=== PATIENT | female | born 1940 | race Caucasian/White ===

== ENCOUNTER 2020-07-31 11:58 | Inpatient (IN) ==
[2020-07-31 12:58] LABS: ABS Eosinophils 0.1 10^3/ul (0-0.6); ABS Monocytes 0.7 10^3/ul (0-0.8); ABS Neutrophils 3.3 10^3/ul (1.5-7.7); Eosinophil % 0.9 %; Hematocrit 23 % (35-47); Hemoglobin 7.7 g/dL (12.0-16.0); Lymphocyte % 32.5 %; Mean Corpuscular HGB Conc 33 g/dL (31-36); Mean Corpuscular Hemoglobin 29 pg (27-31); Mean Corpuscular Volume 88 fL (80-97); Mean Platelet Volume 5.8 fL (7.4-10.4); Platelet Count 392 10^3/uL (150-450); Red Blood Count 2.65 10^6 /uL (3.70-4.87); Red Cell Distribution Width 15 % (10-15); White Blood Count 6.1 10^3/uL (3.5-10.8)
[2020-07-31 13:10] LABS: INR 1.15 (0.82-1.09)
[2020-07-31 13:16] LABS: ALT 8 U/L (7-52); AST 13 U/L (13-39); Albumin/Globulin Ratio 0.6 (1-3); Alkaline Phosphatase 103 U/L (34-104); Anion Gap 8 mmol/L (2-11); BUN/Creatinine Ratio 24.4 (8-20); Blood Urea Nitrogen 38 mg/dL (6-24); C Reactive Protein 170.86 mg/L (<8.01); CO2 Carbon Dioxide 22 mmol/L (22-32); Chloride 106 mmol/L (101-111); EGFR African American 38.5 (>60); EGFR Non-African American 31.9 (>60); Glucose 104 mg/dL (70-100); Potassium 4.6 mmol/L (3.5-5.0); Sodium 136 mmol/L (135-145)
[2020-07-31 13:17] LABS: Troponin I 0.02 ng/mL (<0.03)
[2020-07-31] MEDS ORDERED: Piperacillin/Tazobac ADVAN 3.375 GM in NS 0.9% 100 ml BAG 100 ML IV ONE (13:19)
[2020-07-31] MEDS ORDERED: NS 0.9% 500 ml BAG 500 ML IV ONE (14:12)
[2020-07-31 15:03] LABS: % Iron Saturation 10 % (15-55); Iron 21 ug/dL (50-212); Total Iron Binding Capacity 220 mcg/dL (250-450); Transferrin 157 mg/dL (203-362); Unsaturated Iron Binding < 205 ug/dL
[2020-07-31 15:15] LABS: Folate 12.47 ng/mL (>3.99)
[2020-07-31 15:16] LABS: Ferritin 177.5 ng/mL (11-307)
[2020-07-31 15:17] LABS: Vitamin B12 460 pg/mL (180-914)
[2020-07-31] MEDS ORDERED: Vancomycin per Pharmacy 1 EA NOTE FOLLOW UP PRN (15:46)
[2020-07-31 19:14] LABS: Urine Appearance Cloudy; Urine Bilirubin Negative (Negative); Urine Blood 3+ (Negative); Urine Color Yellow; Urine Glucose Negative (Negative); Urine Ketones Negative (Negative); Urine Nitrite Negative (Negative); Urine Protein 2+(100 mg/dL) (Negative); Urine Specific Gravity 1.014 (1.010-1.030); Urine Urobilinogen Negative (Negative)
[2020-07-31 19:18] LABS: Urine Bacteria 1+ (Absent); Urine Red Blood Cell 3+(>10/hpf) (Absent); Urine Squamous Epithelial Cell Present (Absent); Urine White Blood Cell 3+(>20/hpf) (Absent)
[2020-07-31] MEDS ORDERED: Vancomycin 1,250 MG in NS 0.9% 250 ml 250 ML IVPB ONE (21:00)
[2020-07-31] MEDS: Cefepime 2 GM in Dextrose 2 GM/50 ML BAG IV SCH (23:31)
[2020-08-01 05:47] LABS: ABS Lymphocytes 1.6 10^3/ul (1.0-4.8); ABS Monocytes 0.6 10^3/ul (0-0.8); Eosinophil % 0.3 %; Hematocrit 21 % (35-47); Hemoglobin 6.8 g/dL (12.0-16.0); Mean Corpuscular HGB Conc 33 g/dL (31-36); Mean Corpuscular Hemoglobin 29 pg (27-31); Mean Corpuscular Volume 89 fL (80-97); Mean Platelet Volume 6.1 fL (7.4-10.4); Platelet Count 335 10^3/uL (150-450); Red Blood Count 2.35 10^6 /uL (3.70-4.87); Red Cell Distribution Width 14 % (10-15); White Blood Count 7.2 10^3/uL (3.5-10.8)
[2020-08-01 06:05] LABS: BUN/Creatinine Ratio 22.4 (8-20); Calcium 7.9 mg/dL (8.6-10.3); EGFR African American 41.3 (>60); EGFR Non-African American 34.1 (>60); Potassium 4.2 mmol/L (3.5-5.0)
[2020-08-01] MEDS ORDERED: NS 0.9% 1000 ml BAG 1,000 ML IV SCH (08:00)
[2020-08-01] MEDS: Cefepime 2 GM in Dextrose 2 GM/50 ML BAG IV SCH ×3 (10:13→22:59)
[2020-08-01] MEDS: Dakins Solution 0.125% (1/4 STRENGTH) 473 ML BTL TOPICAL SCH (10:17)
[2020-08-01] MEDS: Vancomycin 1000 MG in NS 0.9% 250 ML IVPB SCH (15:52)
[2020-08-02 06:01] LABS: ABS Eosinophils 0.1 10^3/ul (0-0.6); ABS Lymphocytes 1.8 10^3/ul (1.0-4.8); ABS Monocytes 0.7 10^3/ul (0-0.8); ABS Neutrophils 4.4 10^3/ul (1.5-7.7); Eosinophil % 1.2 %; Hematocrit 21 % (35-47); Lymphocyte % 26.2 %; Mean Corpuscular HGB Conc 33 g/dL (31-36); Mean Corpuscular Hemoglobin 29 pg (27-31); Mean Corpuscular Volume 88 fL (80-97); Mean Platelet Volume 6.2 fL (7.4-10.4); Platelet Count 303 10^3/uL (150-450); Red Blood Count 2.41 10^6 /uL (3.70-4.87); Red Cell Distribution Width 15 % (10-15)
[2020-08-02 06:19] LABS: BUN/Creatinine Ratio 20.7 (8-20); Calcium 7.7 mg/dL (8.6-10.3); EGFR African American 45.5 (>60); EGFR Non-African American 37.6 (>60)
[2020-08-02] MEDS: Dakins Solution 0.125% (1/4 STRENGTH) 473 ML BTL TOPICAL SCH (10:43)
[2020-08-02] MEDS: Cefepime 2 GM in Dextrose 2 GM/50 ML BAG IV SCH ×2 (11:54→23:03)
[2020-08-02] MEDS: Vancomycin 1000 MG in NS 0.9% 250 ML IVPB SCH (15:25)
[2020-08-03 06:54] LABS: ABS Eosinophils 0.2 10^3/ul (0-0.6); ABS Lymphocytes 1.7 10^3/ul (1.0-4.8); ABS Monocytes 0.6 10^3/ul (0-0.8); ABS Neutrophils 4.3 10^3/ul (1.5-7.7); Eosinophil % 2.5 %; Hematocrit 23 % (35-47); Hemoglobin 7.5 g/dL (12.0-16.0); Lymphocyte % 25.4 %; Mean Corpuscular HGB Conc 33 g/dL (31-36); Mean Corpuscular Hemoglobin 28 pg (27-31); Mean Corpuscular Volume 86 fL (80-97); Mean Platelet Volume 6.1 fL (7.4-10.4); Platelet Count 310 10^3/uL (150-450); Red Blood Count 2.65 10^6 /uL (3.70-4.87); Red Cell Distribution Width 16 % (10-15); White Blood Count 6.9 10^3/uL (3.5-10.8)
[2020-08-03] MEDS: Cefepime 2 GM in Dextrose 2 GM/50 ML BAG IV SCH ×2 (11:55→22:55)
[2020-08-03] MEDS: Dakins Solution 0.125% (1/4 STRENGTH) 473 ML BTL TOPICAL SCH (11:55)
[2020-08-03] MEDS ORDERED: Vancomycin Trough Check NOTE FOLLOW UP ONE (15:30)
[2020-08-03] MEDS: Vancomycin 1000 MG in NS 0.9% 250 ML IVPB SCH (17:09)
[2020-08-04 06:22] LABS: ABS Eosinophils 0.2 10^3/ul (0-0.6); ABS Lymphocytes 1.3 10^3/ul (1.0-4.8); ABS Monocytes 0.6 10^3/ul (0-0.8); ABS Neutrophils 4.2 10^3/ul (1.5-7.7); Hematocrit 24 % (35-47); Hemoglobin 7.9 g/dL (12.0-16.0); Lymphocyte % 21.1 %; Mean Corpuscular HGB Conc 34 g/dL (31-36); Mean Corpuscular Hemoglobin 29 pg (27-31); Mean Corpuscular Volume 86 fL (80-97); Mean Platelet Volume 6.1 fL (7.4-10.4); Platelet Count 326 10^3/uL (150-450); Red Blood Count 2.74 10^6 /uL (3.70-4.87); Red Cell Distribution Width 16 % (10-15); White Blood Count 6.4 10^3/uL (3.5-10.8)
[2020-08-04 06:41] LABS: BUN/Creatinine Ratio 25.6 (8-20); Calcium 7.8 mg/dL (8.6-10.3); EGFR African American 49.8 (>60); EGFR Non-African American 41.1 (>60); Potassium 4.2 mmol/L (3.5-5.0)
[2020-08-04 11:38] LABS: C Reactive Protein 150.16 mg/L (<8.01)
[2020-08-04] MEDS: Cefepime 2 GM in Dextrose 2 GM/50 ML BAG IV SCH ×2 (13:36→23:13)
[2020-08-04] MEDS: Dakins Solution 0.125% (1/4 STRENGTH) 473 ML BTL TOPICAL SCH (14:41)
[2020-08-05 07:07] LABS: Hematocrit 23 % (35-47); Hemoglobin 7.6 g/dL (12.0-16.0)
[2020-08-05] MEDS: Dakins Solution 0.125% (1/4 STRENGTH) 473 ML BTL TOPICAL SCH (10:39)
[2020-08-05] MEDS: Cefepime 2 GM in Dextrose 2 GM/50 ML BAG IV SCH ×2 (11:42→23:31)
[2020-08-06 07:05] LABS: ABS Eosinophils 0.3 10^3/ul (0-0.6); ABS Lymphocytes 1.6 10^3/ul (1.0-4.8); ABS Monocytes 0.7 10^3/ul (0-0.8); ABS Neutrophils 2.9 10^3/ul (1.5-7.7); Eosinophil % 4.6 %; Hematocrit 23 % (35-47); Hemoglobin 7.5 g/dL (12.0-16.0); Lymphocyte % 28.6 %; Mean Corpuscular HGB Conc 33 g/dL (31-36); Mean Corpuscular Hemoglobin 29 pg (27-31); Mean Corpuscular Volume 87 fL (80-97); Mean Platelet Volume 6.1 fL (7.4-10.4); Platelet Count 338 10^3/uL (150-450); Red Blood Count 2.61 10^6 /uL (3.70-4.87); Red Cell Distribution Width 15 % (10-15); White Blood Count 5.5 10^3/uL (3.5-10.8)
[2020-08-06 07:16] LABS: BUN/Creatinine Ratio 26.7 (8-20); Calcium 8.3 mg/dL (8.6-10.3); EGFR African American 54.3 (>60); EGFR Non-African American 44.8 (>60); Potassium 4.3 mmol/L (3.5-5.0)
[2020-08-06] MEDS: Cefepime 2 GM in Dextrose 2 GM/50 ML BAG IV SCH ×2 (12:06→23:00)
[2020-08-06] MEDS ORDERED: Vancomycin Trough Check NOTE FOLLOW UP ONE (15:30)
[2020-08-06 18:33] LABS: TSH Ultra Thyroid Stim Horm 3.46 mcIU/mL (0.34-5.60)
[2020-08-07 06:34] LABS: ABS Eosinophils 0.3 10^3/ul (0-0.6); ABS Lymphocytes 1.8 10^3/ul (1.0-4.8); ABS Monocytes 0.7 10^3/ul (0-0.8); ABS Neutrophils 3.1 10^3/ul (1.5-7.7); Eosinophil % 4.5 %; Hematocrit 23 % (35-47); Hemoglobin 7.6 g/dL (12.0-16.0); Lymphocyte % 30.4 %; Mean Corpuscular HGB Conc 33 g/dL (31-36); Mean Corpuscular Hemoglobin 29 pg (27-31); Mean Corpuscular Volume 86 fL (80-97); Mean Platelet Volume 6.2 fL (7.4-10.4); Platelet Count 363 10^3/uL (150-450); Red Blood Count 2.67 10^6 /uL (3.70-4.87); Red Cell Distribution Width 15 % (10-15); White Blood Count 5.8 10^3/uL (3.5-10.8)
[2020-08-07 06:48] LABS: Albumin 2.5 g/dL (3.2-5.2); Albumin/Globulin Ratio 0.6 (1-3); BUN/Creatinine Ratio 28.2 (8-20); Calcium 8.5 mg/dL (8.6-10.3); EGFR African American 57.7 (>60); EGFR Non-African American 47.7 (>60); Globulin 4.5 g/dL (2-4); Potassium 4.2 mmol/L (3.5-5.0); Total Bilirubin 0.2 mg/dL (0.2-1.0)
[2020-08-08 05:56] LABS: ABS Eosinophils 0.3 10^3/ul (0-0.6); ABS Lymphocytes 1.9 10^3/ul (1.0-4.8); ABS Monocytes 0.8 10^3/ul (0-0.8); ABS Neutrophils 3.2 10^3/ul (1.5-7.7); Eosinophil % 4.1 %; Hematocrit 23 % (35-47); Hemoglobin 7.4 g/dL (12.0-16.0); Lymphocyte % 31.1 %; Mean Corpuscular HGB Conc 33 g/dL (31-36); Mean Corpuscular Hemoglobin 29 pg (27-31); Mean Corpuscular Volume 87 fL (80-97); Mean Platelet Volume 6.3 fL (7.4-10.4); Platelet Count 352 10^3/uL (150-450); Red Cell Distribution Width 15 % (10-15); White Blood Count 6.2 10^3/uL (3.5-10.8)
[2020-08-08 06:11] LABS: Albumin 2.6 g/dL (3.2-5.2); Albumin/Globulin Ratio 0.6 (1-3); BUN/Creatinine Ratio 35.8 (8-20); Calcium 8.5 mg/dL (8.6-10.3); EGFR African American 68.3 (>60); EGFR Non-African American 56.5 (>60); Globulin 4.3 g/dL (2-4); Potassium 4.7 mmol/L (3.5-5.0); Total Bilirubin 0.2 mg/dL (0.2-1.0); Total Protein 6.9 g/dL (6.4-8.9)
[2020-08-09 05:36] LABS: Hematocrit 22 % (35-47)
[2020-08-10 07:15] LABS: Hematocrit 25 % (35-47)
[2020-08-11 11:42] VITALS: BP 115/51
== END 2020-08-11 13:07 | DRG 607 ==
LOC: ED 11:58 → SSU 15:30
PROVIDERS: ADMIT Student in an Organized Health Care Education/Training Program; ATTEND Hospitalist

== ENCOUNTER 2021-04-15 06:20 | Inpatient (IN) ==
[2021-04-15] MEDS ORDERED: LORazepam 2 mg VIAL 1 ml IV PUSH ONE (08:28)
[2021-04-15] MEDS ORDERED: Lorazepam PYXIS KEY PRN (08:28)
[2021-04-15 08:47] LABS: INR 0.99 (0.86-1.15)
[2021-04-15 08:52] LABS: Rapid COVID-19 Molecular Undetected (Undetected)
[2021-04-15 08:53] LABS: ALT 10 U/L (7-52); AST 17 U/L (13-39); Albumin 3.1 g/dL (3.2-5.2); Albumin/Globulin Ratio 0.6 (1-3); Alkaline Phosphatase 106 U/L (35-149); Anion Gap 9 mmol/L (2-11); Blood Urea Nitrogen 30 mg/dL (6-24); C Reactive Protein 78.43 mg/L (<8.01); CO2 Carbon Dioxide 21 mmol/L (22-32); Calcium 8.4 mg/dL (8.6-10.3); Chloride 100 mmol/L (101-111); Globulin 4.8 g/dL (2-4); Glucose 144 mg/dL (70-100); Potassium 4.5 mmol/L (3.5-5.0); Sodium 130 mmol/L (135-145); Total Protein 7.9 g/dL (6.4-8.9); eGFR CKD-EPI 19.5 (>60)
[2021-04-15 08:54] LABS: ABS Lymphocytes 1.4 10^3/ul (1.0-4.8); ABS Monocytes 0.4 10^3/ul (0-0.8); ABS Neutrophils 5.9 10^3/ul (1.5-7.7); Eosinophil % 0.2 %; Hematocrit 21 % (35-47); Hemoglobin 6.9 g/dL (12.0-16.0); Lymphocyte % 17.6 %; Mean Corpuscular HGB Conc 32 g/dL (31-36); Mean Corpuscular Hemoglobin 29 pg (27-31); Mean Corpuscular Volume 89 fL (80-97); Mean Platelet Volume 6.4 fL (7.4-10.4); Platelet Count 364 10^3/uL (150-450); Red Blood Count 2.39 10^6 /uL (3.70-4.87); Red Cell Distribution Width 15 % (10-15); White Blood Count 7.7 10^3/uL (3.5-10.8)
[2021-04-15 08:57] LABS: Troponin I 0.04 ng/mL (<0.03)
[2021-04-15 09:02] LABS: Influenza A Molecular Negative (Negative); Influenza B Molecular Negative (Negative)
[2021-04-15] MEDS ORDERED: Lactated Ringers 500 ml BAG 500 ML IV SCH (11:00)
[2021-04-15] MEDS ORDERED: Furosemide 40 mg/4 ml IV VIAL IV SLOW PU ONE (13:27)
[2021-04-15 15:50] LABS: Urine Appearance Cloudy; Urine Bilirubin Negative (Negative); Urine Blood 2+ (Negative); Urine Color Yellow; Urine Glucose 1+(50 mg/dL) (Negative); Urine Ketones Negative (Negative); Urine Nitrite Negative (Negative); Urine Protein 3+(>=500 mg/dL) (Negative); Urine Specific Gravity 1.014 (1.002-1.030); Urine Urobilinogen Negative (Negative)
[2021-04-15 15:56] LABS: Urine Bacteria Absent (Absent); Urine Red Blood Cell 3+(>10/hpf) (Absent); Urine Squamous Epithelial Cell Present (Absent); Urine White Blood Cell 2+(11-20/hpf) (Absent); Urine Yeast Present (Absent)
[2021-04-15 16:14] LABS: Troponin I 0.05 ng/mL (<0.03)
[2021-04-15 18:35] LABS: Troponin I 0.04 ng/mL (<0.03)
[2021-04-15 21:47] LABS: Hematocrit 21 % (35-47)
[2021-04-15 22:50] LABS: Ferritin 40.9 ng/mL (11-307)
[2021-04-15 22:53] LABS: Folate 14.28 ng/mL (5.90-24.80)
[2021-04-15 23:24] LABS: Urine Creatinine Concentration 39.24 mg/dL
[2021-04-16 03:20] LABS: ABS Lymphocytes 1.5 10^3/ul (1.0-4.8); ABS Monocytes 0.6 10^3/ul (0-0.8); ABS Neutrophils 4.2 10^3/ul (1.5-7.7); Eosinophil % 0.6 %; Hematocrit 20 % (35-47); Hemoglobin 6.6 g/dL (12.0-16.0); Lymphocyte % 23.2 %; Mean Corpuscular HGB Conc 33 g/dL (31-36); Mean Corpuscular Hemoglobin 29 pg (27-31); Mean Corpuscular Volume 90 fL (80-97); Mean Platelet Volume 6.4 fL (7.4-10.4); Platelet Count 337 10^3/uL (150-450); Red Blood Count 2.24 10^6 /uL (3.70-4.87); Red Cell Distribution Width 15 % (10-15); White Blood Count 6.4 10^3/uL (3.5-10.8)
[2021-04-16 03:27] LABS: HDL Cholesterol 45.8 mg/dL; Potassium 4.8 mmol/L (3.5-5.0); eGFR CKD-EPI 21.3 (>60)
[2021-04-16] MEDS: Cefepime 1 GM in Dextrose 1 GM/50 ML BAG IV SCH ×2 (04:10→14:27)
[2021-04-16 11:30] LABS: Hematocrit 26 % (35-47); Hemoglobin 8.7 g/dL (12.0-16.0)
[2021-04-16 14:50] LABS: % Iron Saturation 10 % (14 - 50); Total Iron Binding Capacity 227 mcg/dL (250 - 400)
[2021-04-16] MEDS ORDERED: Furosemide 40 mg/4 ml IV VIAL IV SLOW PU ONE (16:14)
[2021-04-16] MEDS ORDERED: Iron Sucrose 200 MG in NS 0.9% 100 ml BAG 100 ML IVPB ONE (17:00)
[2021-04-17] MEDS: Cefepime 1 GM in Dextrose 1 GM/50 ML BAG IV SCH ×2 (05:00→14:44)
[2021-04-17] MEDS: Furosemide 100 mg/10 ml IV VIAL IV SCH (08:27)
[2021-04-17] MEDS ORDERED: Haloperidol 5 mg/ml SDV IV/IM 5 MG/ML AMP IV SLOW PU ONE (10:47)
[2021-04-17] MEDS ORDERED: Furosemide 40 mg/4 ml IV VIAL IV SLOW PU ONE (17:48)
[2021-04-17 20:21] LABS: C Reactive Protein 132.39 mg/L (<8.01)
[2021-04-17 20:33] LABS: ABS Monocytes 0.5 10^3/ul (0-0.8); ABS Neutrophils 6.8 10^3/ul (1.5-7.7); Eosinophil % 0.1 %; Hematocrit 24 % (35-47); Hemoglobin 7.7 g/dL (12.0-16.0); Lymphocyte % 11.6 %; Mean Corpuscular HGB Conc 33 g/dL (31-36); Mean Corpuscular Hemoglobin 29 pg (27-31); Mean Corpuscular Volume 88 fL (80-97); Mean Platelet Volume 6.6 fL (7.4-10.4); Platelet Count 361 10^3/uL (150-450); Red Blood Count 2.67 10^6 /uL (3.70-4.87); Red Cell Distribution Width 15 % (10-15); White Blood Count 8.3 10^3/uL (3.5-10.8)
[2021-04-17 21:11] LABS: Calcium 7.8 mg/dL (8.6-10.3); Potassium 5.4 mmol/L (3.5-5.0)
[2021-04-17 21:34] LABS: eGFR CKD-EPI 18.9 (>60)
[2021-04-18] MEDS: Cefepime 1 GM in Dextrose 1 GM/50 ML BAG IV SCH ×2 (02:48→14:47)
[2021-04-18 04:03] LABS: HIV 4th Generation Nonreactive (Nonreactive)
[2021-04-18] MEDS: Furosemide 100 mg/10 ml IV VIAL IV SCH (09:18)
[2021-04-18 10:31] LABS: Hepatitis B Surface Antigen Nonreactive (Nonreactive)
[2021-04-18 10:48] LABS: Hepatitis B Surface Ab Not Immune (Immune)
[2021-04-18 10:49] LABS: Hepatitis C Antibody Negative (Negative)
[2021-04-19] MEDS: Cefepime 1 GM in Dextrose 1 GM/50 ML BAG IV SCH ×2 (04:29→15:35)
[2021-04-19 07:44] LABS: ABS Basophils 0.1 10^3/ul (0-0.2); ABS Lymphocytes 1.5 10^3/ul (1.0-4.8); ABS Monocytes 0.8 10^3/ul (0-0.8); ABS Neutrophils 5.3 10^3/ul (1.5-7.7); Eosinophil % 0.3 %; Hematocrit 24 % (35-47); Hemoglobin 8.1 g/dL (12.0-16.0); Lymphocyte % 19.9 %; Mean Corpuscular HGB Conc 34 g/dL (31-36); Mean Corpuscular Hemoglobin 30 pg (27-31); Mean Corpuscular Volume 87 fL (80-97); Mean Platelet Volume 6.4 fL (7.4-10.4); Nucleated Red Blood Cells % 0.1; Platelet Count 370 10^3/uL (150-450); Red Blood Count 2.74 10^6 /uL (3.70-4.87); Red Cell Distribution Width 15 % (10-15); White Blood Count 7.7 10^3/uL (3.5-10.8)
[2021-04-19 07:59] LABS: Calcium 8.1 mg/dL (8.6-10.3); Magnesium 1.9 mg/dL (1.9-2.7); eGFR CKD-EPI 16.9 (>60)
[2021-04-19] MEDS ORDERED: NS 0.9% 1000 ml BAG 1,000 ML IV SCH (08:45)
[2021-04-19] MEDS ORDERED: Morphine ORAL CONCENTRATE 5 MG/0.25 ML ORAL.SYRIN SL PRN (17:15)
[2021-04-19 20:14] VITALS: BP 152/91
[2021-04-20 14:44] LABS: Complement C3 151 mg/dL (75 - 175)
[2021-04-20 14:46] LABS: Kappa Free Light Chain 20.1 mg/dL; Lambda Free Light Chain, S 13.4 mg/dL
[2021-04-20 16:39] LABS: Myeloperoxidase Antibody <0.2 U
[2021-04-21 09:48] LABS: Albumin 2.5 g/dL (3.4-4.7); Albumin/Globulin Ratio 0.52; Gamma Globulin 2.2 g/dL (0.6-1.6); Total Protein(PEP) 7.4 g/dL (6.3 - 7.9)
[2021-04-21 13:46] LABS: Cryoglobulin Negative %ppt (Negative)
[2021-04-21 14:32] LABS: C-ANCA Negative (Negative); P-ANCA Negative (Negative)
[2021-04-21 16:09] LABS: Phospholipase A2 Receptor IFA Negative (Negative); Phospholipase A2 ReceptorELISA <2 RU/mL
[2021-04-22] MEDS ORDERED: Scopolamine PATCH Remove NOTE PATCH OFF SCH (18:00)
== END 2021-04-21 02:17 | disposition expired | DRG 871 ==
LOC: ED 06:20 → EDHOLD 11:06 → SUATTDRO 11:06 → MEDTELE 14:31
PROVIDERS: ADMIT Hospitalist; ATTEND Internal Medicine